=== PATIENT | female | born 1970 | race Caucasian/White ===

== ENCOUNTER 2017-02-08 16:43 | Emergency (ER) | payer BC ==
[~2017-02-08] VITALS: Ht 162.6 cm; Wt 67.2 kg
[~2017-02-08 16:43] MED LIST: CITALOPRAM HBR40 MG PO; FLEXERIL10 MG PO; PREDNISONE10 MG PO; ULTRAM50 MG PO
[2017-02-08 17:40] VITALS: BP 96/66
== END 2017-02-08 17:50 | disposition home or self-care (01) ==
LOC: EME 16:43
DX: M21.611 Bunion of right foot (principal); F17.200 Nicotine dependence, unspecified, uncomplicated
CPT/HCPCS: 99281; 99283